=== PATIENT | male | born 1995 | race Caucasian/White ===

== ENCOUNTER 2017-04-21 08:59 | Outpatient (CLI) | payer BC | END 2017-04-21 09:00 | disposition home or self-care (01) | LOC: LABBT 08:59 | PROVIDERS: ATTEND Neurological Surgery | DX: Z01.818 Encounter for other preprocedural examination (principal); M54.16 Radiculopathy, lumbar region ==

== ENCOUNTER 2017-04-25 08:53 | Day surgery (SDC) | payer BC ==
[2017-04-21 09:18] VITALS: BMI 31.1
--- NOTE | 2017-04-24 16:00 | HP ---
HISTORY OF PRESENT ILLNESS: Mr. Lozano is a 21-year-old man who presents for evaluation of lumbar radiculopathy and herniated disk at L5-S1 on left by referral of Dr. Chen. He has had this for over a year and has been experiencing and having in fluent course of presentation, posteriorly it is S1 pa in in the left lower extremity that improves at the time. He seems to improve with therapy, medicati ons, and 2 separate occasions over the course of last 12 months and then more recently. He has been experiencing profound pain for the last 3 months without pain relenting. He has had injections 5 day s ago, which does help profoundly, but then his symptoms returned. He has an MRI from [facility] that reveals disk protrusion to the left at L5-S1 affecting the S1 nerve root as it descends the L5 disk space, I think this very well fits his symptoms. PAST MEDICAL HISTORY: Significant for back pain. CURRENT MEDICATIONS: Tylenol 3, methocarbamol, diclofenac. ALLERGIES: No known drug allergies. PAST SURGICAL HISTORY: [place] tooth extraction. PHYSICAL EXAMINATION: The patient is alert and oriented x3. He has some minimal gait alteration, he can toe walk and heel walk with ease. He has no weakness on exam. He has very minor paresthesias l eft lateral lower leg. Straight leg raise is positive on the left and negative on the right. ASSESSMENT: Lumbar disk herniation with radiculopathy. PLAN: Dr. Blunt met with the patient, reviewed imaging and ultimately he advocated for a left L5 dis kectomy. He explained to the patient the risks, benefits, alternatives of the procedure. The patien t expressed understanding and would like to move forward with surgery as discussed. I do believe the patient is mentally competent and capable of making medical decisions for himself and we will move f orward with surgery as planned.
[2017-04-25] MEDS ORDERED: CEFAZOLIN/Water 2 GM/20 ML SYRINGE ONE ×2 (09:24→15:59)
[2017-04-25] MEDS ORDERED: Thrombin 5000 UNITS/5 ML VIAL ONE (10:44)
[2017-04-25] MEDS ORDERED: Bupivacaine/Epinephrine 0.25% 30 ML VIAL ONE (10:46)
[2017-04-25] MEDS ORDERED: Midazolam HCl 2 mg/2 ml Vial ONE ×2 (11:02→11:04)
[2017-04-25] MEDS ORDERED: Fentanyl 100 MCG/2 ML VIAL ONE (11:02)
[2017-04-25] MEDS ORDERED: HYDROmorphone 0.5 MG/0.5 ML SYRINGE ONE ×2 (12:07→13:20)
[2017-04-25] MEDS ORDERED: SUGAMMADEX SODIUM 200 MG/2 ML VIAL ONE (12:33)
[2017-04-25] MEDS ORDERED: Meperidine HCl/PF 25 MG/ML VIAL ONE (13:02)
[2017-04-25] MEDS ORDERED: Tamsulosin HCl 0.4 MG CAP ONE (13:18)
[2017-04-25] MEDS ORDERED: Lidocaine 1% PF 5 ML VIAL ONE (15:34)
[2017-04-25] MEDS ORDERED: Propofol 200 MG/20 ML VIAL ONE (15:34)
[2017-04-25] MEDS ORDERED: Dexamethasone 20 MG/5 ML VIAL ONE (15:34)
[2017-04-25] MEDS ORDERED: Ketorolac Tromethamine 30 MG/ML VIAL ONE (15:34)
[2017-04-25] MEDS ORDERED: Glycopyrrolate 0.2 MG/ML 5 ML SYRINGE ONE (15:34)
[2017-04-25] MEDS ORDERED: Ondansetron HCl/PF 4 MG/2 ML Vial ONE (15:34)
--- NOTE | 2017-04-28 09:37 | OP ---
DATE OF PROCEDURE: 04/25/2017 SURGEON: Conrad Blunt M.D. BAG MENDER: Raghav Lund PA-C INDICATION: Pain. DIAGNOSIS: Lumbar radiculopathy. PROCEDURE: Left L5 discectomy. ANESTHESIA: General. TECHNIQUE: The patient was brought into the operating room and placed under general anesthesia. He was flipped from a supine to a prone position on the operating room table. A linear incision was alejandro nned over the L5 segment. After prepping and draping and after appropriate operative pause, the inci raf was created. The soft tissues were swept left of midline. A self-retaining retractor was place d in the wound for optimal exposure. After confirming the appropriate levels C-arm fluoroscopy, a hi gh-speed cutting drill bit as well, 2, 3, and 4 mm Kerrisons were used to perform a laminectomy along the inferior aspect of L5 and superior aspect of S1 on the left. Laminectomy encompassed the medial third of the facet joint. The descending S1 nerve root was identified and mobilized medially with a nerve root retractor. An annulotomy was then performed in the L5 disc protuberance where disk mater ial was removed until there was complete decompression of the lateral recess and descending S1 nerve root. The wound was irrigated. Hemostasis was maintained throughout. The wound was then closed in anatomic layers and a pressure dressing was applied. There were no known procedural complications.
== END 2017-04-25 16:16 | disposition home or self-care (01) ==
LOC: SDC 08:53
PROVIDERS: ATTEND Neurological Surgery
PROC: 0ST20ZZ Resection of Lumbar Vertebral Disc, Open Approach (ICD-10-PCS; principal; 2017-04-25)
PROC: 01NB0ZZ Release Lumbar Nerve, Open Approach (ICD-10-PCS; principal; 2017-04-25)
DX: M51.16 Intervertebral disc disorders with radiculopathy, lumbar region (principal); Z98.818 Other dental procedure status; Z98.890 Other specified postprocedural states
CPT/HCPCS: 96374; J1100; J1170; J1885; J2001; J2175; J2250; J2405; J2704; J3010